=== PATIENT | female | born 1980 | race Caucasian/White ===

== ENCOUNTER 2017-02-03 11:02 | Emergency (ER) | payer MEDICAID, OTHER ==
[~2017-02-03] VITALS: Ht 160 cm; Wt 45.0 kg
[~2017-02-03 11:02] MED LIST: ALBU8I INH; ALBUAER3 INH; ALPR1TAB3 PO; DILA100C PO; EPIN1INJ17 IM; EPIP0.3I IM; FLUO-1 PO; TRAZ50TA4 PO
[2017-02-03 11:06] VITALS: BP 116/72; PULSE 86; RESP 15; TEMP 98.5; O2SAT 98
[2017-02-03] MEDS ORDERED: PENI500T PO (11:16)
[2017-02-03] MEDS ORDERED: PERI0.126 SWISH-SPIT (11:16)
[2017-02-03] MEDS ORDERED: MAGICADU2 SWISH-SPIT (11:16)
--- NOTE | 2017-02-03 11:19 | PD ---
HPI Chief Complaint: Oral / Dental Pain or Problem Time Seen by Provider: 11:10 Travel History International Travel<30 days: No Contact w/Intl Traveler<30days: No Traveled to known affect area: No History of Present Illness HPI 36-year-old female smoker reports a history of epilepsy. She presents for evaluation of left maxillary third molar dental pain. Symptoms started 1 week ago. Pain is an aching pain is constant and radiates into the left lower jaw as well as into the left ear. Pain is worse with chewing. She notes that she grinds her teeth at night seems to make the pain worse as well. She has been using ibuprofen for pain control. Denies any cough, congestion, sore throat. No other complaints. PFSH Past Medical History Asthma: Yes Anxiety: Yes Depression: Yes Diminished Hearing: No Respiratory: Yes (ASTHMA) Immunizations Current: Yes Seizures: Yes Ulcer: Yes ?: Not LMP: 01/26/17 : 2 Para: 2 Tubal Ligation: Yes Social History Alcohol Use: No Tobacco Use: Yes (1 PPD) Substance Use: No Allergies-Medications (Allergen,Severity, Reaction): Coded Allergies: Bee Sting (Verified Allergy, Severe, Anaphylaxis, 02/03/17) Contrast Media (Verified Allergy, Severe, Anaphylaxis, 02/03/17) Reported Meds & Prescriptions Reported Meds & Active Scripts Active Peridex Liq (Chlorhexidine Gluconate (Mouth) Liq) 0.12% Soln 15 Ml SWISH-SPIT BID Magic Mouthwash Adult Liq (Multi-Ingredient Mouthwash/Gargle) 120 Ml Susp 10 Ml SWISH-SPIT ACHS Each 5mL contains: Nystatin 200,000units, Diphenhydramine 4.25mg, Viscous Lidocaine 10mg, Winn syrup 0.8 mL Penicillin V Potassium 500 Mg Tab 500 Mg PO Q8H 7 Days Proair Hfa 8.5 GM Inh (Albuterol Sulfate) 90 Mcg/Act Aer 2 Puff INH Q4-6H PRN 108 mcg/actuation Dilantin (Phenytoin Extended) 100 Mg Cap 100 Mg PO BID Epinephrine Inj (Epinephrine) 0.3 Mg/0.3 Ml Pfpen 0.3 Mg IM ONCE PRN Ventolin Hfa (Albuterol Sulfate) 8 Gm Aero 2 Puff INH Q6 * SHAKE WELL BEFORE USE * Epipen (Epinephrine HCl) 0.3 Mg Inj 0.3 Mg IM DIRECTED GIVE IM IN THIGH, MAY REPEAT IF NEEDED Dilantin Kapseals (Phenytoin Sodium) 100 Mg Cap 100 Mg PO BID Reported Alprazolam 1 Mg Tab 1 Mg PO BID Prozac (Fluoxetine HCl) 10 Mg Cap 10 Mg PO DAILY Trazodone Hcl (Trazodone HCl) 50 Mg Tab 50 Mg PO HS Review of Systems General / Constitutional: No: Fever HENT: Positive: Dental Difficulties, Earache, No: Sore Throat, Rhinitis Respiratory: No: Cough Physical Exam Narrative GENERAL: Well-developed well-nourished female in no acute distress SKIN: Warm and dry. HEAD: Atraumatic. Normocephalic. EYES: Pupils equal and round. No scleral icterus. No injection or drainage. ENT: No nasal bleeding or discharge. Mucous membranes pink and moist. Dental decay localized to left maxillary third molar with tenderness to percussion. There is no surrounding erythema or edema. There is no fluctuance, no sublingual edema. There is mild left anterior cervical lymphadenopathy. NECK: Trachea midline. No JVD. CARDIOVASCULAR: Regular rate and rhythm. No murmur appreciated. RESPIRATORY: No accessory muscle use. Clear to auscultation. Breath sounds equal bilaterally. Data Data Last Documented VS Vital Signs Date Time Temp Pulse Resp B/P Pulse Ox O2 Delivery O2 Flow Rate FiO2 02/03/17 11:06 98.5 86 15 116/72 98 MDM Medical Decision Making Medical Screen Exam Complete: Yes Emergency Medical Condition: Yes Medical Record Reviewed: Yes Differential Diagnosis Dental caries, pulpitis, pericoronitis, periodontal abscess Narrative Course 36-year-old female here with one week of dental pain. Examination reveals pain localized to left maxillary third molar with significant decay in this tooth. The plan is to discharge the patient with a short course of penicillin, Magic mouthwash, peridex, ideally with outpatient follow-up with a dentist for definitive therapy. Diagnosis Primary Impression: Dental caries Additional Instructions: Follow-up with a dentist for definitive therapy. Medication as prescribed. Ibuprofen as needed for pain. Take with meals. Avoid tobacco products. Return for any emergent medical conditions. Med/Other Pt SpecificInfo: Prescription(s) given Scripts Chlorhexidine Gluconate (Mouth) Liq (Peridex Liq)0.12% Soln15 Ml SWISH-SPIT BID #473 ML Ref 0 Prov:Kina Hopson MD 02/03/17 Urjznnzu-Yeygimtalwtpcam-Njirmevxk Liq (Magic Mouthwash Adult Liq)120 Ml Susp10 Ml SWISH-SPIT ACHS #120 ML Ref 1 Each 5mL contains: Nystatin 200,000units, Diphenhydramine 4.25mg, Viscous Lidocaine 10mg, Winn syrup 0.8 mL Prov:Kina Hopson MD 02/03/17 Penicillin V Potassium 500 Mg [id number] Mg PO Q8H 7 Days Ref 0 Prov:Kina Hopson MD 02/03/17 Disposition: 01 DISCHARGE HOME Condition: Stable Ton Barr Feb 03, 2017 11:19
[2017-03-26] MEDS ORDERED: DILA100C PO (16:31)
== END 2017-02-03 11:33 | disposition home or self-care (01) ==
LOC: PHEFT 11:02
DX: K02.9 Dental caries, unspecified (principal); H92.02 Otalgia, left ear; J45.909 Unspecified asthma, uncomplicated; F17.210 Nicotine dependence, cigarettes, uncomplicated
CPT/HCPCS: 99282

== ENCOUNTER 2017-02-08 22:54 | Emergency (ER) | payer OTHER ==
[~2017-02-08] VITALS: Ht 157.5 cm; Wt 45.9 kg
[~2017-02-08 22:54] MED LIST changes: -ALBU8I INH; -EPIP0.3I IM; +MAGICADU2 SWISH-SPIT; +PENI500T PO; +PERI0.126 SWISH-SPIT
[2017-02-08 23:27] VITALS: BP 97/65; PULSE 89; RESP 18; TEMP 98.7; O2SAT 99
[2017-02-09 03:57] VITALS: BP 92/65; PULSE 63; RESP 16; O2SAT 99
[2017-02-09] MEDS ORDERED: REME15TA PO (04:02)
[2017-02-09] MEDS ORDERED: ALPR1TAB3 PO (04:02)
[2017-02-09] MEDS ORDERED: FLUO-1 PO (04:02)
[2017-02-09] MEDS ORDERED: CLINDAMYCIN 150 MG CAP PO ONE (04:30)
[2017-02-09] MEDS ORDERED: IBUP-232 PO (04:31)
[2017-02-09] MEDS ORDERED: CLIN1CAP5 PO (04:31)
--- NOTE | 2017-02-09 04:32 | PD ---
HPI Chief Complaint: Skin Problem Time Seen by Provider: 08:50 Travel History International Travel<30 days: No Contact w/Intl Traveler<30days: No Traveled to known affect area: No History of Present Illness HPI 36-year-old female presents to the emergency department for redness of the left labia that secondary to be secondary to hair follicle or possible insect bite. Patient states areas become more tender. No fever no chills no nausea no vomiting. No vesicles no pustules. Patient also notes lymph node to the left groin. Patient is not diabetic. Patient denies . Patient rates her pain 8/10 intensity. Patient is unable to identify alleviating factor palpation and sitting seem to aggravate the condition. Patient has been compliant with her medications and has had no seizures. PFSH Past Medical History Narrative Medical Anxiety depression as well as seizures; tobacco use; nursing notes reviewed Asthma: Yes Anxiety: Yes Depression: Yes Diminished Hearing: No Respiratory: Yes (ASTHMA) Immunizations Current: Yes Seizures: Yes Ulcer: Yes ?: Not : 2 Para: 2 Tubal Ligation: Yes Social History Alcohol Use: No Tobacco Use: Yes (1 PPD) Substance Use: No Allergies-Medications (Allergen,Severity, Reaction): Coded Allergies: Bee Sting (Verified Allergy, Severe, Anaphylaxis, 02/09/17) Contrast Media (Verified Allergy, Severe, Anaphylaxis, 02/09/17) Reported Meds & Prescriptions Reported Meds & Active Scripts Active Proair Hfa 8.5 GM Inh (Albuterol Sulfate) 90 Mcg/Act Aer 2 Puff INH Q4-6H PRN 108 mcg/actuation Ibuprofen 600 Mg Tab 600 Mg PO Q6H PRN Clindamycin (Clindamycin HCl) 150 Mg Cap 300 Mg PO Q6H 7 Days Peridex Liq (Chlorhexidine Gluconate (Mouth) Liq) 0.12% Soln 15 Ml SWISH-SPIT BID Magic Mouthwash Adult Liq (Multi-Ingredient Mouthwash/Gargle) 120 Ml Susp 10 Ml SWISH-SPIT ACHS Each 5mL contains: Nystatin 200,000units, Diphenhydramine 4.25mg, Viscous Lidocaine 10mg, Winn syrup 0.8 mL Penicillin V Potassium 500 Mg Tab 500 Mg PO Q8H 7 Days Dilantin (Phenytoin Extended) 100 Mg Cap 100 Mg PO BID Epinephrine Inj (Epinephrine) 0.3 Mg/0.3 Ml Pfpen 0.3 Mg IM ONCE PRN Reported Remeron (Mirtazapine) 15 Mg Tab 7.5 Mg PO HS Prozac (Fluoxetine HCl) 10 Mg Cap 10 Mg PO DAILY Alprazolam 1 Mg Tab 1 Mg PO Q8H PRN Review of Systems Except as stated in HPI: all other systems reviewed are Neg General / Constitutional: No: Fever, Chills HENT: No: Congestion Cardiovascular: No: Chest Pain or Discomfort Respiratory: No: Shortness of Breath Gastrointestinal: No: Abdominal Pain Genitourinary: No: Flank Pain Musculoskeletal: No: Myalgias, Arthralgias Skin: Positive Rash, Positive Lumps Neurologic: No: Weakness Psychiatric: No: Anxiety Hematologic/Lymphatic: Positive: Lymph Node Enlargement Physical Exam Narrative GENERAL: Well-developed well-nourished female in no acute distress respiratory distress SKIN: Warm and dry. HEAD: Normocephalic. EYES: No scleral icterus. No injection or drainage. NECK: Supple, trachea midline. No JVD or lymphadenopathy. CARDIOVASCULAR: Regular rate and rhythm without murmurs, gallops, or rubs. RESPIRATORY: Breath sounds equal bilaterally. No accessory muscle use. GASTROINTESTINAL: Abdomen soft, non-tender, nondistended. Pelvic: External exam reveals induration without fluctuance to the medial aspect of the left labia without stranding pustule vesicle eschar necrotic tissue or fluctuance. Neighboring left groin palpable lymph node. Speculum and bimanual exams deferred. MUSCULOSKELETAL: No cyanosis, or edema. BACK: Nontender without obvious deformity. No CVA tenderness. Data Data Last Documented VS Vital Signs Date Time Temp Pulse Resp B/P Pulse Ox O2 Delivery O2 Flow Rate FiO2 02/09/17 03:57 63 16 92/65 99 02/08/17 23:27 98.7 Orders Clindamycin (Cleocin) (02/09/17 04:30) Ed Urine Pregnancytest Poc (02/09/17 04:36) MDM Medical Decision Making Medical Screen Exam Complete: Yes Emergency Medical Condition: Yes Medical Record Reviewed: Yes Differential Diagnosis cellulitis folliculitis, abscess; also to consider genital herpes, no findings for necrotizing fasciitis Narrative Course patient with left labial cellulitis with induration and tenderness without fluctuance; no indication for I&D at this time will start patient on clindamycin first dose administered in the emergency department. Diagnosis Primary Impression: Cellulitis of labia majora Referrals: Primary Care Physician call for appointment Patient Instructions: General Instructions Additional Instructions: Complete course of antibiotic as prescribed Follow-up with primary care provider Take acetaminophen as needed for fever 100.4F or greater Return to the emergency department for pain fever worsening of condition or any concerns Med/Other Pt SpecificInfo: Prescription(s) given Scripts Ibuprofen 600 Mg [id number] Mg PO Q6H PRN (PAIN GREATER THAN 5) #12 TAB Ref 0 Prov:Sharmila Barry MD 02/09/17 Clindamycin 150 Mg [id number] Mg PO Q6H 7 Days Ref 0 Prov:Sharmila Barry MD 02/09/17 Disposition: 01 DISCHARGE HOME Condition: Stable Sharmila Barry MD Feb 09, 2017 04:32
[2017-02-09] MEDS ORDERED: ALBUAER3 INH (13:37)
[2017-03-26] MEDS ORDERED: DILA100C PO (16:31)
== END 2017-02-09 05:01 | disposition home or self-care (01) ==
LOC: PHED 22:54
DX: N76.2 Acute vulvitis (principal); F41.8 Other specified anxiety disorders; F17.210 Nicotine dependence, cigarettes, uncomplicated; J45.909 Unspecified asthma, uncomplicated
CPT/HCPCS: 84703; 99282

== ENCOUNTER 2017-05-27 09:38 | Emergency (ER) | payer OTHER ==
[~2017-05-27] VITALS: Ht 158.8 cm; Wt 43.0 kg
[~2017-05-27 09:38] MED LIST changes: +IBUP-232 PO; -MAGICADU2 SWISH-SPIT; -PENI500T PO; -PERI0.126 SWISH-SPIT; +REME15TA PO; -TRAZ50TA4 PO
[2017-05-27 09:44] VITALS: BP 106/73; PULSE 98; RESP 16; TEMP 98.3; O2SAT 100
[2017-05-27] MEDS ORDERED: SODIUM CHLOR 0.9% 1000 ML INJ 1,000 ML IV SCH (09:56)
[2017-05-27] MEDS ORDERED: SODIUM CHLORIDE 0.9% FLUSH 10 ML FLUSH IV FLUSH PRN (10:00)
[2017-05-27] MEDS ORDERED: MORPHINE SULFATE 8 MG/ML INJ IV PUSH ONE (10:00)
[2017-05-27] MEDS ORDERED: ONDANSETRON HCL 4 MG/2 ML VIAL IVP ONE (10:00)
--- NOTE | 2017-05-27 10:01 | PD ---
HPI Chief Complaint: Complaint Time Seen by Provider: 09:48 Travel History International Travel<30 days: No Contact w/Intl Traveler<30days: No Traveled to known affect area: No History of Present Illness HPI The patient is a 36-year-old female who presents emergency department for right flank pain of one week's duration. The patient states initially she had some frequency, urgency, and suprapubic pressure. The patient thought she had a UTI and has been taking [id number]-nyf-nrujndm Azo. However, the patient developed right back pain that radiates into the right flank 3 days ago, very similar to her previous history of kidney stones. She notes 1 episode of hematuria does note multiple episodes of nausea and vomiting. Previous abdominal surgeries include tubal ligation, last menstrual cycle was April 28, 2017, she denies . She denies any vaginal discharge or bleeding. She denies any associated fever, chills, or sweats. Symptoms are moderate, possibly exacerbated by underlying infection and/or kidney stone, and there are no current alleviating factors. PFSH Past Medical History Asthma: Yes Anxiety: Yes Depression: Yes Diminished Hearing: No Respiratory: Yes (ASTHMA) Immunizations Current: Yes Seizures: Yes Ulcer: Yes ?: Not LMP: 04/28/2017 : 2 Para: 2 Tubal Ligation: Yes Social History Alcohol Use: No Tobacco Use: Yes (1 PPD) Substance Use: No Allergies-Medications (Allergen,Severity, Reaction): Coded Allergies: Bee Sting (Verified Allergy, Severe, Anaphylaxis, 05/27/17) Contrast Media (Verified Allergy, Severe, Anaphylaxis, 05/27/17) Reported Meds & Prescriptions Reported Meds & Active Scripts Active Cipro (Ciprofloxacin HCl) 500 Mg Tab 500 Mg PO BID 10 Days Ibuprofen 600 Mg Tab 600 Mg PO Q6H PRN Dilantin (Phenytoin Extended) 100 Mg Cap 100 Mg PO BID Dilantin (Phenytoin Extended) 100 Mg Cap 100 Mg PO BID Proair Hfa 8.5 GM Inh (Albuterol Sulfate) 90 Mcg/Act Aer 2 Puff INH Q4-6H PRN 108 mcg/actuation Ibuprofen 600 Mg Tab 600 Mg PO Q6H PRN Epinephrine Inj (Epinephrine) 0.3 Mg/0.3 Ml Pfpen 0.3 Mg IM ONCE PRN Reported Remeron (Mirtazapine) 15 Mg Tab 7.5 Mg PO HS Prozac (Fluoxetine HCl) 10 Mg Cap 10 Mg PO DAILY Alprazolam 1 Mg Tab 1 Mg PO Q8H PRN Review of Systems Except as stated in HPI: all other systems reviewed are Neg General / Constitutional: No: Fever Cardiovascular: No: Chest Pain or Discomfort Respiratory: No: Shortness of Breath Gastrointestinal: Positive: Nausea, Vomiting, No: Diarrhea, Abdominal Pain Genitourinary: Positive: Urgency, Frequency, Hematuria, Flank Pain, No: Dysuria Skin: No Rash Physical Exam Narrative GENERAL: Awake, alert, nontoxic-appearing 36-year-old female who appears her stated age and is in no acute respiratory distress. SKIN: Focused skin assessment warm/dry. HEAD: Atraumatic. Normocephalic. EYES: Pupils equal and round. No scleral icterus. No injection or drainage. ENT: No nasal bleeding or discharge. Mucous membranes pink and moist. NECK: Trachea midline. No JVD. CARDIOVASCULAR: Regular rate and rhythm. No murmur appreciated. RESPIRATORY: No accessory muscle use. Clear to auscultation. Breath sounds equal bilaterally. GASTROINTESTINAL: Abdomen soft, right flank tenderness. Mild suprapubic tenderness. No rebound tenderness. Back: Right CVA tenderness. MUSCULOSKELETAL: No obvious deformities. No clubbing. No cyanosis. No edema. NEUROLOGICAL: Awake and alert. No obvious cranial nerve deficits. Motor grossly within normal limits. Normal speech. PSYCHIATRIC: Appropriate mood and affect; insight and judgment normal. Data Data Last Documented VS Vital Signs Date Time Temp Pulse Resp B/P Pulse Ox O2 Delivery O2 Flow Rate FiO2 05/27/17 10:14 98 Room Air 05/27/17 09:44 98.3 98 16 106/73 Orders Urinalysis - C+S If Indicated (05/27/17 09:45) Complete Blood Count With Diff (05/27/17 09:56) Comprehensive Metabolic Panel (05/27/17 09:56) Lipase (05/27/17 09:56) Ct Abd/Pel W/O Iv Contrast (05/27/17 09:56) Iv Access Insert/Monitor (05/27/17 09:56) Ecg Monitoring (05/27/17 09:56) Oximetry (05/27/17 09:56) Ondansetron Inj (Zofran Inj) (05/27/17 10:00) Sodium Chlor 0.9% 1000 Ml Inj (Ns 1000 M (05/27/17 09:56) Sodium Chloride 0.9% Flush (Ns Flush) (05/27/17 10:00) Ed Urine Pregnancytest Poc (05/27/17 09:56) Morphine Inj (Morphine Inj) (05/27/17 10:00) Urine Culture (05/27/17 09:56) Ciprofloxacin 400 Mg Premix (Cipro 400 M (05/27/17 10:45) Labs Laboratory Tests Test 05/27/17 05/27/17 09:56 10:04 Urine Collection Type CLEAN CATCH Urine Color YELLOW Urine Turbidity MARKED Urine pH 6.0 Urine Specific Willard 1.019 Urine Protein 300 OR GREATER mg/dL Urine Glucose (UA) NEG mg/dL Urine Ketones NEG mg/dL Urine Occult Blood LARGE Urine Nitrite POS Urine Bilirubin NEG Urine Leukocyte Esterase MOD Urine RBC 50-99 /hpf Urine WBC INNUM /hpf Urine Squamous Epithelial > 8 /hpf Cells Urine Bacteria FEW /hpf Microscopic Urinalysis Comment CULTURE INDICATED Urine Collection Time 09:56 White Blood Count 15.6 TH/MM3 Red Blood Count 4.62 MIL/MM3 Hemoglobin 13.9 GM/DL Hematocrit 40.9 % Mean Corpuscular Volume 88.4 FL Mean Corpuscular Hemoglobin 30.2 PG Mean Corpuscular Hemoglobin 34.1 % Concent Red Cell Distribution Width 13.9 % Platelet Count 279 TH/MM3 Mean Platelet Volume 7.6 FL Neutrophils (%) (Auto) 71.7 % Lymphocytes (%) (Auto) 16.1 % Monocytes (%) (Auto) 9.5 % Eosinophils (%) (Auto) 0.2 % Basophils (%) (Auto) 2.5 % Neutrophils # (Auto) 11.2 TH/MM3 Lymphocytes # (Auto) 2.5 TH/MM3 Monocytes # (Auto) 1.5 TH/MM3 Eosinophils # (Auto) 0.0 TH/MM3 Basophils # (Auto) 0.4 TH/MM3 CBC Comment DIFF FINAL Differential Comment Sodium Level 136 MEQ/L Potassium Level 4.5 MEQ/L Chloride Level 104 MEQ/L Carbon Dioxide Level 27.5 MEQ/L Anion Gap 5 MEQ/L Blood Urea Nitrogen 14 MG/DL Creatinine 0.84 MG/DL Estimat Glomerular Filtration 78 ML/MIN Rate Random Glucose 94 MG/DL Calcium Level 9.2 MG/DL Total Bilirubin 0.8 MG/DL Aspartate Amino Transf 23 U/L (AST/SGOT) Alanine Aminotransferase 20 U/L (ALT/SGPT) Alkaline Phosphatase 74 U/L Total Protein 7.9 GM/DL Albumin 3.7 GM/DL Lipase 94 U/L MDM Medical Decision Making Medical Screen Exam Complete: Yes Emergency Medical Condition: Yes Medical Record Reviewed: Yes Interpretation(s) Last Impressions Abdomen/Pelvis CT 05/27/17 0956 Signed Impressions: Service Date/Time: Saturday, May 27, 2017 10:30 - CONCLUSION: Questionable inflammation and possible mild hydronephrosis of the right kidney suggest a recent right ureteral stone passage. The rest of the study is unremarkable. Free fluid in the right hemipelvis likely physiologic. Robert John MD Laboratory Tests Test 05/27/17 05/27/17 09:56 10:04 Urine Collection Type CLEAN CATCH Urine Color YELLOW Urine Turbidity MARKED Urine pH 6.0 Urine Specific Willard 1.019 Urine Protein 300 OR GREATER mg/dL Urine Glucose (UA) NEG mg/dL Urine Ketones NEG mg/dL Urine Occult Blood LARGE Urine Nitrite POS Urine Bilirubin NEG Urine Leukocyte Esterase MOD Urine RBC 50-99 /hpf Urine WBC INNUM /hpf Urine Squamous Epithelial > 8 /hpf Cells Urine Bacteria FEW /hpf Microscopic Urinalysis Comment CULTURE INDICATED Urine Collection Time 09:56 White Blood Count 15.6 TH/MM3 Red Blood Count 4.62 MIL/MM3 Hemoglobin 13.9 GM/DL Hematocrit 40.9 % Mean Corpuscular Volume 88.4 FL Mean Corpuscular Hemoglobin 30.2 PG Mean Corpuscular Hemoglobin 34.1 % Concent Red Cell Distribution Width 13.9 % Platelet Count 279 TH/MM3 Mean Platelet Volume 7.6 FL Neutrophils (%) (Auto) 71.7 % Lymphocytes (%) (Auto) 16.1 % Monocytes (%) (Auto) 9.5 % Eosinophils (%) (Auto) 0.2 % Basophils (%) (Auto) 2.5 % Neutrophils # (Auto) 11.2 TH/MM3 Lymphocytes # (Auto) 2.5 TH/MM3 Monocytes # (Auto) 1.5 TH/MM3 Eosinophils # (Auto) 0.0 TH/MM3 Basophils # (Auto) 0.4 TH/MM3 CBC Comment DIFF FINAL Differential Comment Sodium Level 136 MEQ/L Potassium Level 4.5 MEQ/L Chloride Level 104 MEQ/L Carbon Dioxide Level 27.5 MEQ/L Anion Gap 5 MEQ/L Blood Urea Nitrogen 14 MG/DL Creatinine 0.84 MG/DL Estimat Glomerular Filtration 78 ML/MIN Rate Random Glucose 94 MG/DL Calcium Level 9.2 MG/DL Total Bilirubin 0.8 MG/DL Aspartate Amino Transf 23 U/L (AST/SGOT) Alanine Aminotransferase 20 U/L (ALT/SGPT) Alkaline Phosphatase 74 U/L Total Protein 7.9 GM/DL Albumin 3.7 GM/DL Lipase 94 U/L Differential Diagnosis Differential diagnosis includes pyelonephritis, nephrolithiasis, hydronephrosis , atypical appendicitis, ectopic , PID, cervicitis, biliary colic, ovarian cyst, ovarian torsion. Narrative Course IV was established, labs are drawn and sent, and the patient was placed on cardiac telemetry monitoring and continuous pulse oximetry monitoring. The patient was administered Toradol, morphine, Zofran, and IV fluids. Bedside UA test was obtained and UA was sent to lab. Noncontrast CT of the abdomen and pelvis was ordered. The patient's white count is elevated at 15.2, BNP is unremarkable. UA reveals innumerable WBCs and 50-99 RBCs and positive nitrites and blood, consistent with pyelonephritis. Bedside UA test was negative. CT reveals questionable inflammation and possible mild hydronephrosis of the right kidney suggestive recent right ureteral stone passage. The rest of the studies unremarkable. Free fluid in the right hemipelvis likely physiologic. The CT findings may suggest pyelonephritis with inflammation, the patient was administered Cipro 4 mg intravenously in the emergency department. She will be discharged home on Cipro and ibuprofen, is advised to follow-up with her primary physician. Diagnosis Primary Impression: Pyelonephritis Additional Impression: Medication refill Patient Instructions: General Instructions Additional Instructions: Medications as directed. Follow-up with your primary physician. Return if symptoms worsen or progress. Med/Other Pt SpecificInfo: Prescription(s) given Scripts Ciprofloxacin (Cipro)500 Mg [id number] Mg PO BID 10 Days Ref 0 Prov:Sebastián Miller MD 05/27/17 Ibuprofen 600 Mg [id number] Mg PO Q6H PRN (Pain/Inflammation) #20 TAB Ref 0 Prov:Sebastián Miller MD 05/27/17 Phenytoin Extended (Dilantin)100 Mg [id number] Mg PO BID #90 CAP Ref 0 Prov:Sebastián Miller MD 05/27/17 Disposition: 01 DISCHARGE HOME Condition: Stable Sebastián Miller MD May 27, 2017 10:01
[2017-05-27 10:09] LABS: BLOOD, URINE LARGE (NEG); GLUCOSE,URINE NEG (NEG); KETONE, URINE NEG (NEG)
[2017-05-27 10:14] VITALS: O2SAT 98
[2017-05-27 10:14] LABS: AUTOMATED NEUTROPHIL # 11.2 TH/MM3 (1.8-7.7); BASOPHIL # 0.4 TH/MM3 (0-0.2); BASOPHIL % 2.5 % (0.0-2.0); EOSINOPHIL % 0.2 % (0.0-4.0); HEMATOCRIT 40.9 % (35.0-46.0); HEMO FLAGS DIFF FINAL; LYMPH % 16.1 % (9.0-44.0); LYMPHOCYTE # 2.5 TH/MM3 (1.0-4.8); MEAN CELL VOLUME 88.4 FL (80.0-100.0); MEAN CORPUSCULAR HEMOGLOBIN 30.2 PG (27.0-34.0); MEAN CORPUSCULAR HGB CONC 34.1 % (32.0-36.0); MONO % 9.5 % (0.0-8.0); NEUT % 71.7 % (16.0-70.0); PLATELET COUNT 279 TH/MM3 (150-450); RED BLOOD COUNT 4.62 MIL/MM3 (4.00-5.30); RED CELL DISTRIBUTION WIDTH 13.9 % (11.6-17.2); WHITE BLOOD COUNT 15.6 TH/MM3 (4.0-11.0)
[2017-05-27 10:17] LABS: CHLORIDE 104 MEQ/L (98-107); SODIUM (NA) 136 MEQ/L (136-145)
[2017-05-27 10:20] LABS: ANION GAP 5 MEQ/L (5-15); BICARBONATE 27.5 MEQ/L (21.0-32.0)
[2017-05-27 10:21] LABS: BLOOD UREA NITROGEN 14 MG/DL (7-18)
[2017-05-27 10:23] LABS: ALT (GPT) 20 U/L (10-53); AST (GOT) 23 U/L (15-37)
[2017-05-27 10:24] LABS: GLOMERULAR FILTRATION RATE 78 ML/MIN (>89)
[2017-05-27 10:25] LABS: TOTAL BILIRUBIN ADULT 0.8 MG/DL (0.2-1.0)
[2017-05-27 10:26] LABS: ALKALINE PHOSPHATASE 74 U/L (45-117)
[2017-05-27 10:28] LABS: NITRITE,URINE POS (NEG)
[2017-05-27 10:29] LABS: METHOD OF COLLECTION CLEAN CATCH; URINE COLOR YELLOW (YELLW/STRAW)
[2017-05-27 10:30] LABS: SQUAMOUS EPITHELIAL CELL URINE > 8 /hpf (0-5); WBC, URINE INNUM /hpf (0-5)
[2017-05-27 10:31] LABS: BACTERIA, URINE FEW /hpf; COMMENT (UR) CULTURE INDICATED; CULTURE IF INDICATED CULTURE INDICATED
[2017-05-27 10:33] LABS: POTASSIUM 4.5 MEQ/L (3.5-5.1)
[2017-05-27] MEDS ORDERED: CIPROFLOXACIN 400 MG PREMIX 200 ML IV ONE (10:45)
--- NOTE | 2017-05-27 10:55 | RADRPT ---
EXAM DATE/TIME: 05/27/2017 10:30 [facility] COMPARISON: CT ABDOMEN & PELVIS W/O CONTRAST, November 16, 2014, 15:51. INDICATIONS : Right flank pain with urinary frequency and pressure. Evaluate for calculi. ORAL CONTRAST: No oral contrast ingested. RADIATION DOSE: 4.28 CTDIvol (mGy) MEDICAL HISTORY : None SURGICAL HISTORY : Tubal ligation. ENCOUNTER: Initial ACUITY: 1 week PAIN SCALE: 7/10 LOCATION: Right flank TECHNIQUE: Volumetric scanning of the abdomen and pelvis was performed. Using automated exposure control and ad justment of the mA and/or kV according to patient size, radiation dose was kept as low as reasonably achievable to obtain optimal diagnostic quality images. DICOM format image data is available electro nically for review and comparison. FINDINGS: LOWER LUNGS: The visualized lower lungs are clear. LIVER: Homogeneous density without lesion. There is no dilation of the biliary tree. No calcified gallston es. SPLEEN: Normal size without lesion. PANCREAS: Within normal limits. KIDNEYS: Normal in size and shape. There is no mass, or stone. On a few images there is some questionable hyd ronephrosis of the right kidney as well with some mild induration around the renal pelvis suggesting there may be a recent ureteral obstruction although no acute stones identified on today's exam. ADRENAL GLANDS: Within normal limits. VASCULAR: There is no aortic aneurysm. BOWEL/MESENTERY: The stomach, small bowel, and colon demonstrate no acute abnormality. There is no free intraperitone al air or fluid. ABDOMINAL WALL: Within normal limits. RETROPERITONEUM: There is no lymphadenopathy. BLADDER: No wall thickening or mass. REPRODUCTIVE: Within normal limits. Clips suggest bilateral tubal interruption. INGUINAL: There is no lymphadenopathy or hernia. MUSCULOSKELETAL: Within normal limits for patient age. CONCLUSION: Questionable inflammation and possible mild hydronephrosis of the right kidney suggest a recent right ureteral stone passage. The rest of the study is unremarkable. Free fluid in the right hemipelvis li davisy physiologic. Robert John MD on May 27, 2017 at 10:50 Board Certified Radiologist. This report was verified electronically.
[2017-05-27] MEDS ORDERED: CIPR-9 PO (11:10)
[2017-05-27] MEDS ORDERED: IBUP-232 PO (11:10)
[2017-05-27] MEDS ORDERED: DILA100C PO (11:10)
[2017-05-27 12:40] VITALS: BP 128/74; PULSE 80; RESP 16; O2SAT 98
== END 2017-05-27 12:44 | disposition home or self-care (01) ==
LOC: PHED 09:38
DX: N12 Tubulo-interstitial nephritis, not specified as acute or chronic (principal); B96.20 Unspecified Escherichia coli [E. coli] as the cause of diseases classified elsewhere; R11.2 Nausea with vomiting, unspecified; R31.9 Hematuria, unspecified; F17.200 Nicotine dependence, unspecified, uncomplicated; Z87.09 Personal history of other diseases of the respiratory system; Z86.59 Personal history of other mental and behavioral disorders; Z86.69 Personal history of other diseases of the nervous system and sense organs; Z87.19 Personal history of other diseases of the digestive system; Z76.0 Encounter for issue of repeat prescription
CPT/HCPCS: 74176; 80053; 81001; 83690; 84703; 85025; 87077; 87086; 87186; 96361; 96365; 96375; 99285; J0744; J2270; J2405; J7030

== ENCOUNTER 2018-02-28 11:11 | Emergency (ER) | payer OTHER ==
[~2018-02-28] VITALS: Ht 157.5 cm; Wt 49.6 kg
[~2018-02-28 11:11] MED LIST changes: +CIPR-9 PO
[2018-02-28 11:13] VITALS: BP 118/70; PULSE 83; RESP 16; TEMP 98.4; O2SAT 98
[2018-02-28] MEDS ORDERED: PROMSYP3 PO (12:11)
--- NOTE | 2018-02-28 12:12 | PD ---
HPI Chief Complaint: Cold / Flu Symptoms Time Seen by Provider: 11:30 Travel History International Travel<30 days: No Contact w/Intl Traveler<30days: No Traveled to known affect area: No History of Present Illness HPI 37-year-old female here with URI-like symptoms. She is complaining of nasal congestion, sore throat, cough 1 day. Symptom severity is mild to moderate. No aggravating or alleviating factors. PFSH Past Medical History Asthma: Yes Anxiety: Yes Depression: Yes Diminished Hearing: No Respiratory: Yes (asthma) Immunizations Current: Yes Seizures: Yes Ulcer: Yes ?: Not LMP: 01/24/18 : 2 Para: 2 Tubal Ligation: Yes Social History Alcohol Use: No Tobacco Use: Yes (1/2PPD) Substance Use: No Allergies-Medications (Allergen,Severity, Reaction): Coded Allergies: bee venom protein (honey bee) (Unverified Allergy, Severe, Anaphylaxis, 11/05) diatrizoate meglumine (Unverified Allergy, Severe, Anaphylaxis, 02/28/18) gadobenic acid (Unverified Allergy, Severe, Anaphylaxis, 02/28/18) gadodiamide (Unverified Allergy, Severe, Anaphylaxis, 02/28/18) gadoteridol (Unverified Allergy, Severe, Anaphylaxis, 02/28/18) iodixanol (Unverified Allergy, Severe, Anaphylaxis, 02/28/18) iohexol (Unverified Allergy, Severe, Anaphylaxis, 02/28/18) Reported Meds & Prescriptions Reported Meds & Active Scripts Active Review of Systems Except as stated in HPI: all other systems reviewed are Neg General / Constitutional: No: Fever Eyes: No: Visual changes HENT: Positive: Sore Throat, Congestion, No: Headaches Cardiovascular: No: Chest Pain or Discomfort Respiratory: Positive: Cough Gastrointestinal: No: Abdominal Pain Genitourinary: No: Dysuria Physical Exam Narrative GENERAL: Alert and well-appearing 37-year-old female. SKIN: Warm and dry. No rash HEAD: Normocephalic. EYES: No injection or drainage. Ear/nose/throat: No TM erythema. Clear nasal discharge. Mild pharyngeal erythema without tonsillar hypertrophy or exudate. Uvula is midline. Airways patent. NECK: Supple, trachea midline. No JVD or lymphadenopathy. CARDIOVASCULAR: Regular rate and rhythm without murmurs, gallops, or rubs. RESPIRATORY: Breath sounds equal bilaterally. No accessory muscle use. GASTROINTESTINAL: Abdomen soft, non-tender, nondistended. MUSCULOSKELETAL: No cyanosis, or edema. BACK: Nontender without obvious deformity. No CVA tenderness. Data Data Last Documented VS Vital Signs Date Time Temp Pulse Resp B/P (MAP) Pulse Ox O2 Delivery O2 Flow Rate FiO2 02/28/18 11:13 98.4 83 16 118/70 (86) 98 Orders Orders Influenzae A/B Antigen (02/28/18 11:28) MDM Medical Decision Making Medical Screen Exam Complete: Yes Emergency Medical Condition: Yes Differential Diagnosis Viral URI, influenza, bronchitis, pneumonia Narrative Course 37-year-old female here with mild URI-like symptoms. She is nontoxic appearing. Vital signs are stable. Influenza screening is negative. She will be treated for viral URI Diagnosis Primary Impression: Viral URI Referrals: Primary Care Physician Departure Forms: Tests/Procedures, Work Release Enter return to work date: Mar 02, 2018 Additional Instructions: Medication as directed. Rest. Drink plenty fluid. Follow-up with her primary doctor. Scripts Dextromethorphan-Promethazine Liq (Promethazine-Dextromethorphan Liq) 6.25-15 Mg /5 Ml Syrp 10 ML PO Q6HR Y for COUGH, #120 ML Prov: Mary Dye 02/28/18 Disposition: 01 DISCHARGE HOME Condition: Stable Mary Dye Feb 28, 2018 12:12
== END 2018-02-28 12:24 | disposition home or self-care (01) ==
LOC: PHEFT 11:11
DX: J06.9 Acute upper respiratory infection, unspecified (principal); J45.909 Unspecified asthma, uncomplicated; F32.9 Major depressive disorder, single episode, unspecified; F41.9 Anxiety disorder, unspecified; F17.200 Nicotine dependence, unspecified, uncomplicated
CPT/HCPCS: 87804; 99283